=== PATIENT | female | born 1980 | race Caucasian/White ===

== ENCOUNTER 2018-12-04 17:45 | Emergency (ER) | payer OTHER ==
--- NOTE | 2018-12-04 18:28 | EDPHY ---
H & P Stated Complaint: LUQ abd pain, left arm pain Time Seen by Provider: 12/04/18 18:06 HPI/ROS: CHIEF COMPLAINT: Neck pain, arm pain, abdominal pain, leg pain HISTORY OF PRESENT ILLNESS: 38-year-old female presents emergency department reporting for the last several months she has had intermittent episodes, often on the weekends, when she wakes with left upper quadrant discomfort. She also feel discomfort in the left side of her neck, across the left portion of her chest and down her left arm. Pain is described as achy discomfort in the arm. Achy discomfort in the neck. Achy pain in abdomen. She has had no associated nausea, vomiting, diarrhea, chest pain, shortness of breath, palpitations, numbness or tingling in the arms or legs. She also develops a headache with this syndrome. Typically patient reports that if she takes a bath in the afternoon her discomfort will resolve. She developed the same discomfort yesterday morning when she woke with the pain state present throughout the day. She also developed discomfort and crampy pain in her left calf. Patient used icy Hot and also took ibuprofen as she was quite uncomfortable yesterday. Pain remains present today in the left upper quadrant, underneath her ribs, left side of her neck, left shoulder and into the left medial arm. No fever, chills, chest pain, shortness of breath, palpitations, vomiting, diarrhea, urinary complaints, headache, lightheadedness. REVIEW OF SYSTEMS: A comprehensive 10 system review of systems was reviewed and is otherwise negative aside from elements mentioned in the history of present illness and medical decision making. PAST MEDICAL HISTORY: Patient denies. On no medications. SOCIAL HISTORY: Alcohol specially on the weekends, nonsmoker, LMP 2 weeks ago. VITAL SIGNS Reviewed by me. GENERAL: Well-developed, well-nourished, resting comfortably in no respiratory distress. HEENT: Atraumatic. Eyes: No icterus, no injection. EOMI. No nystagmus. Mouth: moist mucous membranes. No erythema or lesions. Neck: supple with no adenopathy. No midline tenderness palpation. No crepitus on the anterior neck. Full range of motion without difficulty. LUNGS: Clear to auscultation bilaterally, no wheezes, rhonchi or rales. CARDIAC: Regular rate and rhythm, no rubs, murmurs or gallops. ABDOMEN: Soft, mild tenderness in the left upper quadrant, under the ribs, no guarding or rebound. BACK: No CVA tenderness. EXTREMITIES: No trauma. No edema. Range of motion is normal throughout. No rash or tenderness on the left upper extremity. No fullness, tenderness, rash, swelling, warmth on the left lower extremity. NEURO: Alert and oriented, motor strength 5/5 throughout. Cranial nerves 2-12 are intact. Sensation intact to light touch throughout. SKIN: Warm and dry, no rash. PSYCHIATRIC: Normal mentation, no agitation. - Personal History LMP (Females 10-55): 1-7 Days Ago Current Tetanus/Diphtheria Vaccine: No Current Tetanus Diphtheria and Acellular Pertussis (TDAP): No - Medical/Surgical History Hx Asthma: No Hx Chronic Respiratory Disease: No Hx Diabetes: No Hx Cardiac Disease: No Hx Renal Disease: No Hx Cirrhosis: No Hx Alcoholism: No Hx HIV/AIDS: No Hx Splenectomy or Spleen Trauma: No - Social History Smoking Status: Never smoked Constitutional: Initial Vital Signs Temperature (C) 36.9 C 12/04/18 17:49 Heart Rate 79 12/04/18 17:49 Respiratory Rate 11 L 12/04/18 17:49 Blood Pressure 139/105 H 12/04/18 17:49 O2 Sat (%) 98 12/04/18 17:49 O2 Delivery Mode Room Air Allergies/Adverse Reactions: No Known Allergies Allergy (Unverified 12/04/18 17:49) Home Medications: Medication Instructions Recorded NK [No Known Home Meds] 12/04/18 Medical Decision Making - Diagnostics EKG Interpretation: 12-LEAD EKG: Please see the full report in [facility]. My interpretation: Normal sinus rhythm Imaging Results: Imaging Impressions Chest X-Ray 12/04/18 18:25 Impression: Clear lungs. No acute process. Abdomen CT 12/04/18 19:00 Impression: 1. Left nephrolithiasis. No hydronephrosis or obstructing ureteral calculi. 2. No localized intraabdominal inflammatory process or explanation for pain. 3. Normal appendix and bowel pattern. Findings discussed with Emergency Department physician, Lety Vergara M.D., E:RH/amm Imaging: Discussed imaging studies w/ performance engineer Radiologist, I viewed and interpreted images myself ED Course/Re-evaluation: 38-year-old female with a constellation of symptoms presented to the emergency department. EKG ordered to evaluate for the patient's left upper chest discomfort and left arm discomfort. This was negative for any acute ischemic changes. Bedside troponin was negative. Chest x-ray demonstrates no intrathoracic abnormalities. Abdominal CT: No splenic abnormalities, bowel obstruction, masses, or adenopathy. Patient does have a small stone in the left renal pelvis. No hydronephrosis or hydroureter. Laboratory evaluation including troponin, CBC, LFTs and electrolytes all noncontributory. Urinalysis with 1+ blood and 1+ ketones, concentrated urine. Discussed with the patient all the pertinent negatives of the evaluation. Unclear if the patient's symptom complex is related to dehydration in the setting of a small renal stone in the left renal pelvis. This perhaps may be related to the patient's symptoms as she reports sleeping on her left side, and always having the pain when she wakes in the morning, especially after having significant alcohol consumption the night before. Advised patient to decrease alcohol intake, follow up with Dr. Walter as soon as possible, and to stay well-hydrated. Differential Diagnosis: Differential diagnoses for the patient's symptom complex was considered including but not limited to acute coronary syndrome, subdiaphragmatic irritation, splenic abnormalities, constipation, kidney stone, muscle spasm. - Data Points Laboratory Results: Laboratory Results 12/04/18 18:20 12/04/18 18:20 Point of Care Test Results: Chemistry 12/04/18 18:38 POC Troponin I 0.00 ng/mL ng/mL (0.00-0.08) Departure - Departure Disposition: Home, Routine, Self-Care Clinical Impression: Left upper arm pain Abdominal pain Qualifiers: Abdominal location: left upper quadrant Qualified Code(s): R10.12 - Left upper quadrant pain Condition: Good Instructions: Abdominal Pain (ED), Flank Pain (ED) Additional Instructions: Please drink plenty of fluid. Please follow up with Dr. Walter within the next week for further evaluation. Please limit your alcohol intake. Referrals: Ariela Walter MD [Primary Care Provider] - As per Instructions
[2018-12-04 18:45] LABS: PLATELET COUNT 298 10^3/uL (150-400)
--- NOTE | 2018-12-04 19:02 | CPEKG ---
Test Reason : OPEN Blood Pressure : / mmHG Vent. Rate : 067 BPM Atrial Rate : 066 BPM P-R Int : 126 ms QRS Dur : 084 ms QT Int : 413 ms P-R-T Axes : 040 040 026 degrees QTc Int : 436 ms Sinus rhythm Confirmed by Lety Vergara ([id number]) on 12/04/2018 7:01:22 PM Referred By: Lety Vergara Confirmed By:Lety Vergara
[2018-12-04] MEDS ORDERED: IOPAMIDOL (ISOVUE-300) 100 ML BTL ONE (19:03)
[2018-12-04 20:11] VITALS: BP 128/88
== END 2018-12-04 20:11 | disposition home or self-care (01) ==
DX: R10.12 Left upper quadrant pain (principal); M79.622 Pain in left upper arm; R07.89 Other chest pain
CPT/HCPCS: 84484-ER; Q9967

== ENCOUNTER → 2019-01-26 | Outpatient (CLI) | payer OTHER | LOC: BMCIMAGING 07:08 ==